=== PATIENT | female | born 1960 | race Caucasian/White ===

== ENCOUNTER 2022-09-25 11:19 | Emergency (ER) | payer OTHER ==
[~2022-09-25] VITALS: Ht 160 cm; Wt 55.0 kg
[2022-09-25 11:35] VITALS: BP 169/90
[2022-09-25 11:45] VITALS: BP 146/87
[2022-09-25 11:57] VITALS: BP 151/89
[2022-09-25 12:00] VITALS: BP 164/86
[2022-09-25] MEDS ORDERED: LEVONORGESTREL1.5 MG (12:12)
[2022-09-25 12:30] VITALS: BP 132/80
[2022-09-25] MEDS ORDERED: METHOCARBAMOL500 MG PO (12:45)
[2022-09-25] MEDS ORDERED: NAPROXEN500 MG PO (12:45)
[2022-09-25 12:54] VITALS: BP 132/80
== END 2022-09-25 13:00 | disposition home or self-care (01) | DRG 563 ==
LOC: ED 11:19
DX: S86.811A Strain of other muscle(s) and tendon(s) at lower leg level, right leg, initial encounter (principal); X58.XXXA Exposure to other specified factors, initial encounter; Y93.69 Activity, other involving other sports and athletics played as a team or group

== ENCOUNTER 2024-10-05 07:44 | Emergency (ER) | payer MEDICARE, OTHER ==
[~2024-10-05] VITALS: Ht 160 cm; Wt 54.6 kg
[2024-10-05] VITALS (11 sets, daily range): BP systolic 129–154; BP diastolic 61–96
[~2024-10-05 07:44] MED LIST: LEVONORGESTREL1.5 MG; METHOCARBAMOL500 MG PO; NAPROXEN500 MG PO
[2024-10-05] MEDS ORDERED: DEXTROSE 250 ML IV ONE (07:47)
[2024-10-05 08:44] LABS: URINE BILIRUBIN - DIPSTICK Negative (NEGATIVE); URINE BLOOD DIPSTICK Negative (NEGATIVE); URINE GLUCOSE - DIPSTICK 100 mg/dL (NEGATIVE); URINE KETONE 40 mg/dL (NEGATIVE); URINE LEUK ESTERASE Trace (NEGATIVE); URINE NITRITE - DIPSTICK Negative (Negative); URINE PH 5.5 (4.5-8.0); URINE PROTEIN - DIPSTICK Negative (NEG-TRACE); URINE UROBILINOGEN - DIPSTICK 0.2 E.U./dL (0.2)
[2024-10-05 08:50] LABS: BASO% 0.4 % (0-3); EOS% 0.4 % (0-8); HEMATOCRIT 45.1 % (37.0-47.0); HEMOGLOBIN 14.8 g/dl (12.0-16.0); IMMATURE GRANULOCYTES 0.3 % (0.0-5.0); LYMPH% 7.2 % (15-41); MEAN CELL VOLUME 93.8 fL CALC (80.0-100.0); MEAN CORPUSCULAR HGB 30.8 pG CALC (26.0-32.0); MEAN CORPUSCULAR HGB CONC 32.8 g/dL CAL (32.0-36.0); MONO% 5.7 % (2-13); NEUT# 7.67 thou/uL (2.00-7.15); RED BLOOD COUNT 4.81 mill/uL (4.20-5.60); RED CELL DISTRI WIDTH 13.1 % (11.5-15.5)
[2024-10-05 09:01] LABS: ALBUMIN 4.6 g/dL (3.2-5.0); ALKALINE PHOSPHATASE 45 u/l (38-126); ANION GAP 14 (6-22 (CALC)); BILIRUBIN, TOTAL 0.5 mg/dL (0.02-1.3); BUN 13 mg/dL (8-23); BUN/CREATININE RATIO 19 (12-20 (CALC)); CARBON DIOXIDE 26 mmol/l (22-30); CHLORIDE 95 mmol/l (95-108); CREATININE 0.7 mg/dL (0.5-1.0); ESTIMATED GFR 95 ML/MIN (>=90 (CALC)); POTASSIUM 3.9 mmol/l (3.5-5.1); SGOT/AST 56 u/l (9-36); SODIUM 131 mmol/l (137-146); TOTAL PROTEIN 7.1 g/dL (6.3-8.2)
[2024-10-05] MEDS ORDERED: DEXTROSE 10% 500 ML BAG IV ONE (09:05)
[2024-10-05 09:18] LABS: URINE COLOR Yellow
== END 2024-10-05 10:34 | disposition home or self-care (01) ==
LOC: ED 07:44
PROVIDERS: Family Medicine
DX: E16.2 Hypoglycemia, unspecified (principal)